=== PATIENT | female | born 1965 | race Caucasian/White ===

== ENCOUNTER 2020-03-26 22:03 | Inpatient (IN) ==
[2020-03-26] MEDS ORDERED: SODIUM CHLORIDE 0.9% 1000ML 1,000 ML IV ONE ×2 (23:01→23:42)
[2020-03-26] MEDS ORDERED: ONDANSETRON INJ 2 MG/ML 2 ML VIAL IV STA (23:01)
[2020-03-26] MEDS ORDERED: MoRPHine SULFATE 2 MG/ML CARP IV STA (23:01)
--- NOTE | 2020-03-26 23:10 | Emergency Department Note ---
History of Present Illness General Chief complaint: Dehydration Stated complaint: VOMITING, DEHYDRATION Time Seen by Provider: 03/26/20 22:35 Source: patient Mode of arrival: ambulatory Limitations: no limitations History of Present Illness Provider complaint: nausea/vomiting, abdominal pain Onset (ago): day(s) 1 Location: abdomen Radiation: non-radiation Severity: moderate Maximum Pain Intensity: 4 Current Pain Intensity: 4 Quality: + constant Relieved By: + none Exacerbated By: + none Associated symptoms: + loss of appetite, + malaise and + nausea/vomiting Treatments prior to arrival: none This is a 55-year-old female who presents complaining of nausea vomiting and abdominal pain. Patient states pain started yesterday afternoon around 1 PM, and his pain worsened and she began to have nausea vomiting. Last evening patient was seen and evaluated in the [facility] emergency room where she underw ent labs, urine, and CT imaging and was told she had a 3 mm right-sided kidney stone. Patient was discharged with ondansetron, Flomax, and ciprofloxacin. Patient states at that time she was told she had an infection in her urine as well. Patient followed up with her family doctor who told her that the preliminary urine culture showed no growth and that she likely did not have a urinary tract infection. Patient states today she has had persistent nausea and vomiting as well as ongoing pain and has been unable to keep any of the medications down. Patient states she is also had minimal urine output today. Patient states she has noticed slight blood with urination when she wipes. Patient denies fevers or chills. Patient denies any prior history of kidney stones, states her brother does get them. Pt seen during a time of high acuity and national emergency pandemic while wearing PPE. Home Medications Home Medications Medication Instructions Recorded Confirmed Type acetaminophen-codeine 1 tab PO Q4H PRN 03/26/20 03/26/20 History black cohosh 200 mg PO DAILY 03/26/20 03/26/20 History calcium carbonate-vitamin D3 1 cap PO DAILY 03/26/20 03/26/20 History [Calcium 600 + D(3)] cholecalciferol (vitamin D3) 25 mcg PO DAILY 03/26/20 03/26/20 History [Vitamin D3] ciprofloxacin HCl 500 mg PO Q12H 03/26/20 03/26/20 History levothyroxine 25 mcg PO DAILYBB 03/26/20 03/26/20 History multivitamin 2 tab PO DAILY 03/26/20 03/26/20 History omeprazole 40 mg PO DAILYBB 03/26/20 03/26/20 History ondansetron 4 mg TRANSLINGUAL Q6H PRN 03/26/20 03/26/20 History pravastatin 20 mg PO DAILY 03/26/20 03/26/20 History tamsulosin 0.4 mg PO DAILY 03/26/20 03/26/20 History Allergies Allergy/AdvReac Type Severity Reaction Status Date / Time morphine Allergy Severe HAD TO BE Verified 03/26/20 23:42 RESUSCITATED, VEINS WENT "WHITE". Penicillins Allergy Intermediate RASH-HIVES Verified 03/26/20 23:42 Past Med/Surg History Surgical History (Updated 03/27/20 @ 03:41 by Aide Abad RN) H/O knee surgery H/O: hysterectomy Social History Smoking Status: Never smoker Second Hand Exposure: No; Do You Dip or Chew Tobacco: No; Tobacco Cessation Education Requested by Patient: No Hx Alcohol Use: No Hx Substance Use: No Preferred Language: Mosotho Communication Ability: Effective Spindle Maker Required: No Beliefs That Will Affect Care: None Current Living Situation: Spouse Other Information That Helps Us Care for You: No Feels Safe at Home: Yes Safety Concerns: Feels Safe At This Time Review of Systems See HPI for pertinent positives & negatives. and A total of 10 systems reviewed and were otherwise negative Physical Exam Vital Signs Vital Signs - 24 hr 03/27/20 02:00 Pulse Rate [Apical] 67 Respiratory Rate 18 Respiratory Effort / Characteristics Non-Labored Spontaneous Respiratory Depth Normal Respiratory Pattern Regular Blood Pressure [Right Arm] 118/79 Blood Pressure Mean [Right Arm] 92 Blood Pressure Position [Right Arm] Lying Pulse Oximetry 93 Oxygen Delivery Method Room Air GENERAL: alert, ill appearing, well nourished, moderate distress, non-toxic, dry heaving into an emesis bag EYE EXAM: normal conjunctiva, PERRL and EOM's grossly intact OROPHARYNX: no exudate, no erythema, lips, buccal mucosa, and tongue normal and mucous membranes are dry NECK: supple, no nuchal rigidity, no adenopathy, non-tender LUNGS: Clear to auscultation. Normal chest wall mechanics, no w/r/r HEART: no murmurs, S1 normal and S2 normal ABDOMEN: abdomen soft, tenderness to palpation in the right lower quadrant and right mid abdomen, normo-active bowel sounds, no masses, no rebound or guarding. BACK: Back is symmetrical on inspection and there is no deformity, no midline tenderness, no CVA tenderness. SKIN: no rashes and no bruising UPPER EXTREMITIES: upper extremities are grossly normal. FROM, nml pulses b/l. LOWER EXTREMITIES: No pitting edema. FROM, nml pulses b/l. NEURO EXAM: Normal sensorium, cranial nerves II-XII grossly intact, normal speech, no gross weakness of arms, no gross weakness of legs. Gross sensation intact. Course Course 2326: Patient still having pain, uncomfortable appearing. 0052: Patient states pain improved, would like to try taking ice chips. Patient and family were able to show me records from her evaluation there and I was able to review the CT results, as well as the urine culture which showed no growth. Patient's renal function at that time was normal, no leukocytosis. While talking and patient's trial of ice chips, she began to get nauseated and began dry heaving again. Will order additional Zofran. 0130: Pt still nauseated, pain still present but tolerable. 0140: Discussed with Dr. Welch. Administered Medications Acetaminophen (Acetaminophen 325 Mg Tab) 650 mg PO Q4H PRN PRN Reason: Pain or Fever Stop: 04/26/20 03:32 Last Admin: 03/27/20 14:16 Dose: 650 mg Documented by: [id number] Admin: 03/27/20 06:33 Dose: 650 mg Documented by: [id number] Hydromorphone HCl (Hydromorphone Inj 1 Mg/Ml Syringe) 1 mg IV Q3H PRN PRN Reason: SEVERE Pain (Scale 7,8,9,10) Stop: 04/10/20 03:32 Last Admin: 03/27/20 23:26 Dose: 1 mg Documented by: [id number] Sodium Chloride (Nss 1000ml) 1,000 mls @ 200 mls/hr IV .Q5H YUMIKO Stop: 04/26/20 13:29 Last Admin: 03/27/20 20:06 Dose: 200 mls/hr Documented by: [id number] Infusion: 03/27/20 19:12 Dose: 200 mls/hr Documented by: [id number] Admin: 03/27/20 14:12 Dose: 200 mls/hr Documented by: [id number] Levothyroxine Sodium (Levothyroxine Sodium 25 Mcg Tablet) 25 mcg PO DAILYBB YUMIKO Stop: 04/26/20 06:29 Last Admin: 03/27/20 06:31 Dose: 25 mcg Documented by: [id number] Pravastatin Sodium (Pravastatin Sod 20 Mg Tab) 20 mg PO DAILY YUMIKO Stop: 04/26/20 08:59 Last Admin: 03/27/20 09:25 Dose: 20 mg Documented by: [id number] Tamsulosin HCl (Tamsulosin Hcl 0.4 Mg Cap) 0.4 mg PO DAILY YUMIKO Stop: 04/26/20 08:59 Last Admin: 03/27/20 09:25 Dose: 0.4 mg Documented by: [id number] Discontinued Medications Famotidine (Famotidine 20mg/5ml Iv Push) 20 mg IV ONE STA Stop: 03/27/20 03:05 Last Admin: 03/27/20 03:14 Dose: 20 mg Documented by: [id number] Hydromorphone HCl (Hydromorphone Inj 0.5 Mg/0.5 Ml Syr) 0.5 mg IV NOW STA Stop: 03/26/20 23:26 Last Admin: 03/27/20 00:10 Dose: 0.5 mg Documented by: [id number] Hydromorphone HCl (Hydromorphone Inj 1 Mg/Ml Syringe) 1 mg IV NOW STA Stop: 03/27/20 00:59 Last Admin: 03/27/20 01:19 Dose: Not Given Documented by: [id number] Sodium Chloride (Nss 1000ml) 1,000 mls @ 999 mls/hr IV .Q1H1M ONE Stop: 03/27/20 00:01 Last Infusion: 03/27/20 01:18 Dose: 0 mls/hr Documented by: [id number] Admin: 03/26/20 23:24 Dose: 999 mls/hr Documented by: [id number] Sodium Chloride (Nss 1000ml) 1,000 mls @ 999 mls/hr IV .Q1H1M ONE Stop: 03/27/20 00:42 Last Infusion: 03/27/20 01:18 Dose: 0 mls/hr Documented by: [id number] Admin: 03/27/20 00:11 Dose: 999 mls/hr Documented by: [id number] Magnesium Sulfate/Dextrose (Magnesium Sulfate / D5w) 1 gm in 100 mls @ 100 mls/hr IV NOW STA Stop: 03/27/20 01:02 Last Infusion: 03/27/20 01:18 Dose: 0 mls/hr Documented by: [id number] Admin: 03/27/20 00:10 Dose: 100 mls/hr Documented by: [id number] Acetaminophen (Ofirmev) 1,000 mg in 100 mls @ 400 mls/hr IV NOW STA Stop: 03/27/20 00:44 Last Infusion: 03/27/20 01:18 Dose: 0 mls/hr Documented by: [id number] Admin: 03/27/20 00:50 Dose: 400 mls/hr Documented by: [id number] Sodium Chloride (Nss 1000ml) 1,000 mls @ 125 mls/hr IV .Q8H YUMIKO Stop: 04/26/20 01:14 Last Infusion: 03/27/20 04:04 Dose: 0 mls/hr Documented by: [id number] Admin: 03/27/20 01:18 Dose: 125 mls/hr Documented by: [id number] Prochlorperazine (Compazine) 1 mls @ 1 mls/min IV ONE ONE Stop: 03/27/20 01:32 Last Admin: 03/27/20 01:58 Dose: 1 mls/min Documented by: [id number] Sodium Chloride (Nss 1000ml) 1,000 mls @ 125 mls/hr IV .Q8H YUMIKO Stop: 03/27/20 11:32 Last Infusion: 03/27/20 12:03 Dose: 125 mls/hr Documented by: [id number] Admin: 03/27/20 03:54 Dose: 125 mls/hr Documented by: [id number] Ketorolac Tromethamine (Ketorolac Tromethamine 15 Mg/Ml Vial) 10 mg IV NOW ONE Stop: 03/27/20 00:31 Last Admin: 03/27/20 00:39 Dose: 10 mg Documented by: [id number] Ketorolac Tromethamine (Ketorolac Tromethamine 15 Mg/Ml Vial) 15 mg IV Q6H PRN PRN Reason: MODERATE Pain (Scale 4,5,6) Last Admin: 03/27/20 12:12 Dose: 15 mg Documented by: [id number] Morphine Sulfate (Morphine Sulfate 2 Mg/Ml Carp) 2 mg IV NOW STA Stop: 03/26/20 23:02 Last Admin: 03/27/20 00:14 Dose: Not Given Documented by: [id number] Ondansetron HCl (Ondansetron Inj 2 Mg/Ml 2 Ml Vial) 4 mg IV NOW STA Stop: 03/26/20 23:02 Last Admin: 03/26/20 23:24 Dose: 4 mg Documented by: [id number] Ondansetron HCl (Ondansetron Inj 2 Mg/Ml 2 Ml Vial) 4 mg IV NOW STA Stop: 03/27/20 01:10 Last Admin: 03/27/20 01:17 Dose: 4 mg Documented by: [id number] Medical Decision Making Differential Diagnosis Differential: Gastroenteritis, Food Borne, Esophageal Perforation, , Electrolyte Abnormality, Dehydration, Intraabdominal Infection, UTI/Pyelonephritis, Bowel Obstruction, Biliary Pathology, medication reaction, infection, amongst other pathology entertained. Medical Records Attestation: I reviewed the patient's medical records. Home Medications Current Medication List: was personally reviewed by me Laboratory Data Attestation: I reviewed the patient's lab results. Result diagrams: 03/27/20 05:39 03/27/20 05:39 Lab Results 03/26/20 03/26/20 Range/Units 23:19 23:19 WBC 9.88 (4.8-10.8) K/uL RBC 4.42 (4.2-5.4) M/uL Hgb 12.4 (12.0-16.0) g/dL Hct 37.5 (37-47) % MCV 84.8 (80-100) fL MCH 28.1 (25-34) pg MCHC 33.1 (32-36) g/dL RDW Std Deviation 41.8 (36.4-46.3) fL RDW Coeff of Pippa 13.4 (11.5-14.5) % Plt Count 275 (130-400) K/uL MPV 8.7 (7.4-10.4) fL Immature Gran % (Auto) 0.2 % Neut % (Auto) 82.2 % Lymph % (Auto) 9.2 % [place] % (Auto) 8.2 % Eos % (Auto) 0.1 % Baso % (Auto) 0.1 % Neut # (Auto) 8.12 H (1.4-6.5) K/uL Lymph # (Auto) 0.91 L (1.2-3.4) K/uL [place] # (Auto) 0.81 H (0.11-0.59) K/uL Eos # (Auto) 0.01 (0-0.5) K/uL Baso # (Auto) 0.01 (0-0.2) K/uL Immature Gran # (Auto) 0.02 (0.00-0.02) K/uL Sodium 139 (136-145) mmol/L Potassium 3.9 (3.5-5.1) mmol/L Chloride 105 (98-107) mmol/L Carbon Dioxide 28 (21-32) mmol/L Anion Gap 6.0 (3-11) BUN 18 (7-18) mg/dl Creatinine 1.32 H (0.6-1.2) mg/dl Est Cr Clr Drug Dosing 40.8 ml/min Est GFR ( Amer) 53.2 Est GFR (Non-Af Amer) 45.9 BUN/Creatinine Ratio 13.3 (10-20) Glucose 103 H (70-99) mg/dl Calcium 8.9 (8.5-10.1) mg/dl Magnesium 1.7 L (1.8-2.4) mg/dl Total Bilirubin 0.7 (0.2-1) mg/dl AST 20 (15-37) U/L ALT 34 (12-78) U/L Alkaline Phosphatase 95 (45-117) U/L Total Protein 7.4 (6.4-8.2) gm/dl Albumin 3.7 (3.4-5.0) gm/dl Globulin 3.7 (2.5-4.0) gm/dl Albumin/Globulin Ratio 1.0 (0.9-2) Lipase 70 L (73-393) U/L Imaging Data My Impression: KUB: X-ray reviewed and interpreted by me, no obvious SBO, no air-fluid levels, questionable phlebolith versus stone noted in the right low pelvis. Blood Pressure Blood Pressure Findings: Normal blood pressure MDM Narrative Presenting here due to persistent pain, nausea and vomiting. Patient recently diagnosed with a 3 mm distal ureteral stone at [facility]. Patient was given medications, however was unable to tolerate them at home. Family bedside was able to show me results of the CT and her prior labs which I did review. Patient had no evidence of leukocytosis or renal dysfunction, no other acute findings on the CT. Patient was given additional medications for nausea and pain, however required subsequent repeat doses. Patient was carefully rehydrated due to poor p.o. intake today because of symptoms of her renal colic. Patient was afebrile and hemodynamically stable. Patient did not have a significant leukocytosis, however did have a slight elevation of her creatinine compared to her prior at the time of diagnosis. Patient also had a urine culture which was negative from her prior evaluation. I do not suspect infected stone. Given persistence of symptoms despite multiple medications, discussed with patient additional inpatient evaluation and management she was in agreement. Case discussed with Dr. Welch. An order was placed for continuous cardiac monitoring. The monitor shows a rate of _80 with _normal sinus__ rhythm. Impression & Plan Abdominal pain, Renal colic, Nausea & vomiting Discharge Plan Visit Data Chief Complaint: Dehydration Stated Complaint: VOMITING, DEHYDRATION ED Provider: Suzan Yañez Discharge Problem: Abdominal pain, Renal colic, Nausea & vomiting Patient Disposition: Admitted As Inpatient Discharge Instructions Interventions: ED Discharge Assessment Last Done: 03/27/20 03:10 Discharge Problem: Abdominal pain Qualifiers: Abdominal location: right lower quadrant Qualified Code(s): R10.31 - Right lower quadrant pain Nausea & vomiting Qualifiers: Vomiting type: unspecified
[2020-03-26] MEDS ORDERED: HYDROmorphone INJ 0.5 MG/0.5 ML SYR IV STA (23:25)
[2020-03-26 23:34] LABS: Basophils # (auto) 0.01 K/uL (0-0.2); Basophils % (auto) 0.1 %; Eosinophils # (auto) 0.01 K/uL (0-0.5); Eosinophils % (auto) 0.1 %; Hematocrit (blood only) 37.5 % (37-47); Hemoglobin 12.4 g/dL (12.0-16.0); Immature Granulocytes # (auto) 0.02 K/uL (0.00-0.02); Immature Granulocytes % (auto) 0.2 %; Lymphocytes # (auto) 0.91 K/uL (1.2-3.4); Lymphocytes % (auto) 9.2 %; Mean Corpuscular Hemoglobin 28.1 pg (25-34); Mean Corpuscular Hgb Conc 33.1 g/dL (32-36); Mean Corpuscular Volume 84.8 fL (80-100); Mean Platelet Volume 8.7 fL (7.4-10.4); Monocytes # (auto) 0.81 K/uL (0.11-0.59); Monocytes % (auto) 8.2 %; Neutrophils # (auto) 8.12 K/uL (1.4-6.5); Neutrophils % (auto) 82.2 %; Platelet Count 275 K/uL (130-400); RDW Coefficient of Variation 13.4 % (11.5-14.5); RDW Standard Deviation 41.8 fL (36.4-46.3); Red Blood Count 4.42 M/uL (4.2-5.4); White Blood Count 9.88 K/uL (4.8-10.8)
[2020-03-26 23:51] LABS: Albumin Level 3.7 gm/dl (3.4-5.0); BUN Creatinine Ratio 13.3 (10-20); Calcium 8.9 mg/dl (8.5-10.1); Creatinine Clr Calc Pharmacy 40.8 ml/min; Est GFR (African American) 53.2; Est GFR (Non-African American) 45.9; Magnesium 1.7 mg/dl (1.8-2.4); Potassium 3.9 mmol/L (3.5-5.1)
[2020-03-26 23:53] LABS: Bilirubin,Total 0.7 mg/dl (0.2-1); Globulin 3.7 gm/dl (2.5-4.0); Total Protein 7.4 gm/dl (6.4-8.2)
[2020-03-27] MEDS ORDERED: MAGNESIUM SULFATE / D5W 1 GM/100 ML BAG IV STA (00:03)
[2020-03-27] MEDS ORDERED: KETOROLAC TROMETHAMINE 15 MG/ML VIAL IV ONE (00:30)
[2020-03-27] MEDS ORDERED: ACETAMINOPHEN 1,000 MG/100 ML VIAL IV STA (00:30)
[2020-03-27] MEDS ORDERED: HYDROmorphone INJ 1 MG/ML SYRINGE IV STA (00:58)
[2020-03-27] MEDS ORDERED: ONDANSETRON INJ 2 MG/ML 2 ML VIAL IV STA (01:09)
[2020-03-27] MEDS ORDERED: SODIUM CHLORIDE 0.9% 1000ML 1,000 ML IV SCH ×2 (01:15→03:33)
[2020-03-27] MEDS ORDERED: PROCHLORPERAZINE 1 ML IV ONE (01:31)
--- NOTE | 2020-03-27 02:51 | History & Physical Report ---
Date of Service March 27, 2020 Assessment & Plan (1) Nausea & vomiting: Tete Ugalde is a 55 y/o female who presented to [facility] ED today for CC of Vomiting. She notes she had sudden onset of right lower back pain yesterday around 1pm that radiated into right groin. - Recently diagnosed with right sided kidney stone at [place] [facility] yesterday. - She has been unable to continue outpatient management as started to have intractable vomiting. - Will defer antibiotic management, considered giving IV abx here. She has an unclear history if her prior UA was positive. She notes she took Cipro this morning but had episode of vomiting right after taking pill. She states that her PCP reviewed UA results from ED visit and told patient that patient didn't appear to have a UTI. Patient states that her PCP made no recommendations to continue to discontinue antibiotics. She denies any fever or chills. There is no current UA. Will continue order for UA with culture. - She notes no prior hx of kidney stones prior to this episode. Education on staying well hydrated to prevent future stone formation. - She notes current nausea/vomiting is controlled and pain is controlled from ED treatment. - In the ED she received, prochlorperazine, dilaudid 1mg IV, NSS 2L Bolus total, Zofran 4mg IV x 2 doses, Tylenol 1gm IV, Toradol 10mg IV, morphine 2mg IV, Mag 1gm IV, Dilaudid 0.5mg IV. - Discussed that treatment will be supportive care until able to tolerate PO intake. Analgesic orders placed by severity. Zofran 4mg IV q6h is ordered PRN, anticipate she will require alternate medication or more frequent dosing. - Will continue with NSS @ 125ml/hr. Clear liquid diet ordered and advance as tolerated, aspiration precautions ordered. - No elevated WBC here, Tmax 37.6. FENGI: Clear liquid as tolerated, advance as tolerated, Pepcid 20mg IV x 1, NSS @125ml/hr Dispo: Obs, med/surg DVT ppx: SCDs Code: Full code (2) Renal colic: pain management orders placed by severity attempt to keep patient as comfortable as possible IVF provided to allow adequate perfusion - c/w Flomax 0.4mg PO (3) Hypothyroid: c/w home synthroid 25mcg daily (4) HLD (hyperlipidemia): c/w home pravastatin 20mg (5) GERD (gastroesophageal reflux disease): home PPI since NF, will give Pepcid 20mg IV x 1 now History of Present Illness Chief Complaint: Vomiting Primary Care Provider: Jessie Montgomery Tete Ugalde is a 55 y/o female who presented to [facility] ED today for CC of Vomiting. She notes she had sudden onset of right lower back pain yesterday around 1pm that radiated into right groin. She notes pain was severe and she went to [place] ED. She notes she was diagnosed with a kidney stone in the ED. She was given Rx for Flomax, Zofran ODT, and Ciprofloxacin 500mg. She no enmanuel she was given an IV abx in [place] ED as well but cannot recall the name. She notes she started to have nausea and vomiting after she returned home from the ED. She notes that episodes were too numerous to count. She notes that vomiting was worsened with any PO intake. She notes she did not try Zofran ODT which she had at home. She noted decreased urine output today as well. She was concerned about dehydration and came here to [facility] ED. She notes she took Cipro this morning but had episode of vomiting right after taking pill. She states that her PCP reviewed UA results from ED visit and told patient that patient didn't appear to have a UTI. Patient states that her PCP made no recommendations to continue to discontinue antibioics. She denies any fever or chills. She notes no prior hx of kidney stones prior to this episode. She notes current nausea/vomiting is controlled and pain is controlled from ED treatment. In the ED she received, prochlorperazine, dilaudid 1mg IV, NSS 2L Bolus total, Zofran 4mg IV x 2 doses, Tylenol 1gm IV, Toradol 10mg IV, morphine 2mg IV, Mag 1gm IV, Dilaudid 0.5mg IV. Allergies Allergy/AdvReac Type Severity Reaction Status Date / Time morphine Allergy Severe HAD TO BE Verified 03/26/20 23:42 RESUSCITATED, VEINS WENT "WHITE". Penicillins Allergy Intermediate RASH-HIVES Verified 03/26/20 23:42 Home Medications Home Medications Medication Instructions Recorded Confirmed Type acetaminophen-codeine 1 tab PO Q4H PRN 03/26/20 03/26/20 History black cohosh 200 mg PO DAILY 03/26/20 03/26/20 History calcium carbonate-vitamin D3 1 cap PO DAILY 03/26/20 03/26/20 History [Calcium 600 + D(3)] cholecalciferol (vitamin D3) 25 mcg PO DAILY 03/26/20 03/26/20 History [Vitamin D3] ciprofloxacin HCl 500 mg PO Q12H 03/26/20 03/26/20 History levothyroxine 25 mcg PO DAILYBB 03/26/20 03/26/20 History multivitamin 2 tab PO DAILY 03/26/20 03/26/20 History omeprazole 40 mg PO DAILYBB 03/26/20 03/26/20 History ondansetron 4 mg TRANSLINGUAL Q6H PRN 03/26/20 03/26/20 History pravastatin 20 mg PO DAILY 03/26/20 03/26/20 History tamsulosin 0.4 mg PO DAILY 03/26/20 03/26/20 History Past Med/Surg History Surgical History (Updated 03/27/20 @ 03:41 by Aide Abad RN) H/O knee surgery H/O: hysterectomy Social History Smoking Status: Never smoker Second Hand Exposure: No; Do You Dip or Chew Tobacco: No; Tobacco Cessation Education Requested by Patient: No Hx Alcohol Use: No Hx Substance Use: No Preferred Language: Icelandic Land Surveyor Required: No Beliefs That Will Affect Care: None Current Living Situation: Spouse Other Information That Helps Us Care for You: No Feels Safe at Home: Yes Safety Concerns: Feels Safe At This Time Review of Systems Review of Systems: All systems reviewed & are unremarkable except as noted in HPI & below Constitutional: no fever and no chills Eyes: no blind spots and no spots in vision Ear, Nose, Mouth, Throat: no nasal congestion, no nasal obstruction and no epistaxis Respiratory: no cough and no dyspnea Cardiovascular: no chest pain and no palpitations Gastrointestinal: as per Subjective / HPI Genitourinary: as per Subjective / HPI; no dysuria Musculoskeletal: as per Subjective / HPI; no neck pain and no joint pain Integumentary: no rash and no lesions Neurologic: no localized weakness, no numbness and no syncope Endocrine: no polydipsia, no polyphagia and no polyuria Physical Exam Constitutional: WD/WN, vitals as above cooperative and comfortable appears tired Eyes: PERRL, conjunctivae normal, anicteric sclerae ENMT: dry mucous membranes Neck: normal visual inspection and trachea midline Respiratory: normal respiratory effort, lungs clear to auscultation Cardiovascular: RRR, no murmur, no edema Gastrointestinal (Abdomen): Percussion/Palpation: abdomen soft; abdomen nontender, no guarding and abdomen not rigid Musculoskeletal: Head/Neck/Chest: normocephalic and head atraumatic Skin: no rashes, warm and dry Neurologic: moves all extremities and awake Psychiatric: A+Ox3, euthymic affect Results & Data Results & Data ([facility]) Vital Signs (Past 12 Hours) Vital Signs Temp Pulse Pulse Resp BP BP Pulse Ox 03/27/20 02:00 67 18 118/79 93 03/27/20 00:04 90 18 116/76 95 03/26/20 22:07 37.6 C H 103 H 18 129/63 95 Laboratory Results Laboratory Results - last 24 hr 03/26/20 03/26/20 23:19 23:19 WBC 9.88 RBC 4.42 Hgb 12.4 Hct 37.5 MCV 84.8 MCH 28.1 MCHC 33.1 RDW Std Deviation 41.8 RDW Coeff of Pippa 13.4 Plt Count 275 MPV 8.7 Immature Gran % (Auto) 0.2 Neut % (Auto) 82.2 Lymph % (Auto) 9.2 [place] % (Auto) 8.2 Eos % (Auto) 0.1 Baso % (Auto) 0.1 Neut # (Auto) 8.12 H Lymph # (Auto) 0.91 L [place] # (Auto) 0.81 H Eos # (Auto) 0.01 Baso # (Auto) 0.01 Immature Gran # (Auto) 0.02 Sodium 139 Potassium 3.9 Chloride 105 Carbon Dioxide 28 Anion Gap 6.0 BUN 18 Creatinine 1.32 H Est Cr Clr Drug Dosing 40.8 Est GFR ( Amer) 53.2 Est GFR (Non-Af Amer) 45.9 BUN/Creatinine Ratio 13.3 Glucose 103 H Calcium 8.9 Magnesium 1.7 L Total Bilirubin 0.7 AST 20 ALT 34 Alkaline Phosphatase 95 Total Protein 7.4 Albumin 3.7 Globulin 3.7 Albumin/Globulin Ratio 1.0 Lipase 70 L Medications Administered Sodium Chloride (Nss 1000ml) 1,000 mls @ 125 mls/hr IV .Q8H YUMIKO Stop: 04/26/20 01:14 Last Admin: 03/27/20 01:18 Dose: 125 mls/hr Documented by: [id number] Code Status & VTE Plan Code Status Full Code VTE Prophylaxis Plan VTE Prophylaxis will be ordered: Yes Supervising Physician Co-Signing Physician Notes Patient seen and examined, chart reviewed, case discussed with Dr. Potter and I agree with his assessment and plan as documented above. Briefly, patient is a 55-year-old female presenting with persistent nausea and vomiting, right flank pain. Patient recently diagnosed with kidney stone. On physical exam she is afebrile, hemodynamically stable, in mild distress secondary to nausea and pain Skinwarm, dry, intact, no rashes or lesions HEENTnormocephalic/atraumatic, pupils equal round and reactive to light, neck supple, moist mucous membranes Heart+ S1, S2, regular, no murmur/rub/gallops Lungsequal breath sounds bilaterally, no rales/rhonchi/wheezes Abdomensoft, nontender/nondistended. Normoactive bowel sounds. + Right flank pain with CVA tenderness Extremitieswarm, well-perfused, 2+ pulses and no edema Neurogrossly nonfocal Labs and images reviewed. Significant for elevated creatinine of 1.32 Assessment/plan Observation to medical floor GERD pain control, antiemetics as needed Fluid Flomax Remainder of plan as above Resident Activity Tracking Resident Involvement: Resident Care Provided Care Provided: Adult Hospital Medicine (1) Nausea & vomiting Vomiting type: unspecified
[2020-03-27] MEDS ORDERED: FAMOTIDINE 20MG/5ML IV PUSH IV STA (03:04)
[2020-03-27] MEDS ORDERED: KETOROLAC TROMETHAMINE 15 MG/ML VIAL IV PRN (03:33)
[2020-03-27] MEDS ORDERED: MoRPHine SULFATE 2 MG/ML CARP IV PRN (03:33)
--- NOTE | 2020-03-27 04:05 | Billing Data ---
Date of Service March 27, 2020 Coding Level of Care Code 32831 OBS Care - Level 3
[2020-03-27 04:11] LABS: Appearance Urine Clear (Clear); Bacteria Urine Automated Negative (Negative); Bilirubin Urine Negative (Negative); Blood Urine Trace (Negative); Color Urine Yellow; Epithelial Cell Urine Auto 0-5 /lpf (0-5); Glucose Urine UA Negative (Negative); Ketones Urine 1+ (Negative); Leukocyte Esterase Urine Negative (Negative); Nitrite Urine Negative (Negative); Protein Urine Negative (Negative); RBC Urine Automated 0-4 /hpf (0-4); Specific Gravity Urine 1.019 (1.000-1.030); Urobilinogen Urine Negative (Negative); WBC Urine Automated 0 /hpf (0-5)
[2020-03-27 05:49] LABS: Eosinophils # (auto) 0.02 K/uL (0-0.5); Eosinophils % (auto) 0.2 %; Hematocrit (blood only) 31.5 % (37-47); Hemoglobin 10.5 g/dL (12.0-16.0); Immature Granulocytes # (auto) 0.02 K/uL (0.00-0.02); Immature Granulocytes % (auto) 0.2 %; Lymphocytes # (auto) 1.29 K/uL (1.2-3.4); Lymphocytes % (auto) 13.6 %; Mean Corpuscular Hemoglobin 28.7 pg (25-34); Mean Corpuscular Hgb Conc 33.3 g/dL (32-36); Mean Corpuscular Volume 86.1 fL (80-100); Mean Platelet Volume 8.1 fL (7.4-10.4); Monocytes # (auto) 0.85 K/uL (0.11-0.59); Neutrophils # (auto) 7.28 K/uL (1.4-6.5); Platelet Count 203 K/uL (130-400); RDW Coefficient of Variation 13.6 % (11.5-14.5); RDW Standard Deviation 43.1 fL (36.4-46.3); Red Blood Count 3.66 M/uL (4.2-5.4); White Blood Count 9.46 K/uL (4.8-10.8)
[2020-03-27 06:10] LABS: BUN Creatinine Ratio 12.4 (10-20); Calcium 8.3 mg/dl (8.5-10.1); Creatinine Clr Calc Pharmacy 45.2 ml/min; Est GFR (African American) 60.4; Est GFR (Non-African American) 52.1; Magnesium 2.1 mg/dl (1.8-2.4)
[2020-03-27] MEDS: LEVOTHYROXINE SODIUM 25 MCG TABLET PO SCH (06:31)
[2020-03-27] MEDS: ACETAMINOPHEN 325 MG TAB PO PRN ×2 (06:33→14:16)
--- NOTE | 2020-03-27 08:14 | XRay Report ---
KUB CLINICAL HISTORY: Right-sided stone. COMPARISON STUDY: None. FINDINGS: A 2 mm right pelvic calcification is noted. No renal calculi are identified. Bowel gas carlos jason is normal. IMPRESSION: 2 mm right pelvic calcification which could reflect a phlebolith or distal right uretera l calculus. ACT 112: Negative or not required by law. Electronically signed by: Otto Groves M.D. 03/27/2020 8:12 AM
--- NOTE | 2020-03-27 09:19 | Hospitalist Progress Note ---
Date of Service March 27, 2020 Assessment & Plan (1) Nausea & vomiting: Tete Ugalde is a 55 y/o female who presented to [facility] ED today for CC of Vomiting. She notes she had sudden onset of right lower back pain yesterday around 1pm that radiated into right groin. - Recently diagnosed with right sided kidney stone at [facility] yesterday. - She has been unable to continue outpatient management as started to have intractable vomiting. - She notes no prior hx of kidney stones prior to this episode. Her brothers had kidney stones and her mother had gallstones - was not started on antibiotics. Analgesic orders placed by severity. Zofran 4mg IV q6h is ordered PRN, anticipate she will require alternate medication or more frequent dosing. -Escalate IV fluids 200 and hour strain all urine and check a renal ultrasound Renal function is stable on serology (2) Renal colic: pain management orders placed by severity attempt to keep patient as comfortable as possible IVF provided to allow adequate perfusion - c/w Flomax 0.4mg PO If not improved and continues with obstruction of urology consult will keep n.p.o. after midnight on 03 27-03 28 (3) Hypothyroid: home synthroid 25mcg daily (4) HLD (hyperlipidemia): pravastatin 20mg (5) GERD (gastroesophageal reflux disease): Typically takes home PPI Admission and Anticipated Discharge Date Admission Date: March 27, 2020 Subjective Patient still with right flank pain probably 5 out of 10. She has had no hematuria she has not had frequent urination however an IV fluid will be increased Review of Systems Review of Systems: Mild distress and fatigue no headache, blurry or double vision no speech or swallowing issues no chest pain, pressure or palpitations no shortness of breath, cough or wheezes Right-sided abdominal pain mild nausea no dysuria, hematuria or frequency no focal joint pain or swelling Stated back pain with CVA tenderness no radicular pain no bruising, bleeding or rashes no focal signs of weakness or numbness or altered sensation no complaints or anxiety or depression. Physical Exam Physical Exam: The patient appeared well nourished and normally developed. She is in mild to moderate distress Vital signs as documented. Head exam is normocephalic atraumatic no scleral icterus Neck is without JVD, thyromegaly, or carotid bruits. Lungs are clear to auscultation, no focal loss of breath sounds Cardiac exam, Rhythm is regular.. No murmurs, rubs or gallops. Abdominal exam reveals normal bowel sounds, soft nonright-sided tenderness CVA angle tenderness some tenderness to percussion Extremities are nonedematous and both pedal pulses are normal. Neurologic exam is alert and oriented, no focal loss of strength or sensation Skin is without bruises or rashes Psychologically is without concerns for anxiety or depression. Results & Data Results & Data ([facility]) Vital Signs (Past 12 Hours) Vital Signs Temp Pulse Pulse Pulse Resp BP BP 03/27/20 07:44 97.7 F 73 18 110/68 03/27/20 03:33 97.7 F 77 16 118/69 03/27/20 03:10 63 18 121/68 03/27/20 02:00 67 18 118/79 03/27/20 00:04 90 18 116/76 03/26/20 22:07 99.7 F H 103 H 18 129/63 Pulse Ox 03/27/20 07:44 97 03/27/20 03:33 93 03/27/20 03:10 93 03/27/20 02:00 93 03/27/20 00:04 95 03/26/20 22:07 95 PG Care Time/CCT Total # of Minutes Spent Total Time Spent with Patient: Total time spent is greater than 50% in coordination of care (as documented) at patient's floor/unit and/or counseling patient: Coding Level of Care Code 24325 Subseq Obs Care Lvl 2 Diagnoses Nausea & vomiting R11.2 Vomiting type: unspecified Renal colic N23 Hypothyroid E03.9 HLD (hyperlipidemia) E78.5 GERD (gastroesophageal reflux disease) K21.9 (1) Nausea & vomiting Vomiting type: unspecified
[2020-03-27] MEDS: TAMSULOSIN HCL 0.4 MG CAP PO SCH (09:25)
[2020-03-27] MEDS: PRAVASTATIN SOD 20 MG TAB PO SCH (09:25)
[2020-03-27] MEDS: SODIUM CHLORIDE 0.9% 1000ML 1,000 ML IV SCH ×2 (14:12→20:06)
--- NOTE | 2020-03-27 16:25 | Ultrasound Report ---
EXAMINATION: RENAL ULTRASOUND CLINICAL HISTORY: Right-sided flank pain COMPARISON STUDY: FINDINGS: The right kidney measures 10.5 cm. The left kidney measures 11.8 cm. There is mild fullnes s the right renal collecting system. There is a small amount of right-sided perinephric fluid. There is no left-sided hydronephrosis. There are no renal masses. No bladder lesions are visualized. Neither ureteral jet was delineated. IMPRESSION : 1. Small amount of right-sided perinephric fluid 2. Minimal fullness of the right renal collecting system ACT 112: Negative or not required by law. Electronically signed by: Roni Fox M.D. 03/27/2020 4:24 PM
[2020-03-27] MEDS: HYDROmorphone INJ 1 MG/ML SYRINGE IV PRN (23:26)
[2020-03-28] MEDS: SODIUM CHLORIDE 0.9% 1000ML 1,000 ML IV SCH ×3 (01:10→11:34)
[2020-03-28 05:58] LABS: Basophils # (auto) 0.01 K/uL (0-0.2); Basophils % (auto) 0.1 %; Hematocrit (blood only) 31.9 % (37-47); Hemoglobin 10.5 g/dL (12.0-16.0); Immature Granulocytes # (auto) 0.04 K/uL (0.00-0.02); Immature Granulocytes % (auto) 0.3 %; Lymphocytes # (auto) 0.75 K/uL (1.2-3.4); Lymphocytes % (auto) 6.3 %; Mean Corpuscular Hemoglobin 28.5 pg (25-34); Mean Corpuscular Hgb Conc 32.9 g/dL (32-36); Mean Corpuscular Volume 86.7 fL (80-100); Mean Platelet Volume 8.8 fL (7.4-10.4); Monocytes # (auto) 0.86 K/uL (0.11-0.59); Monocytes % (auto) 7.3 %; Neutrophils # (auto) 10.18 K/uL (1.4-6.5); Platelet Count 223 K/uL (130-400); RDW Coefficient of Variation 13.7 % (11.5-14.5); RDW Standard Deviation 43.7 fL (36.4-46.3); Red Blood Count 3.68 M/uL (4.2-5.4); White Blood Count 11.84 K/uL (4.8-10.8)
[2020-03-28] MEDS: HYDROmorphone INJ 1 MG/ML SYRINGE IV PRN (06:12)
[2020-03-28] MEDS: ONDANSETRON INJ 2 MG/ML 2 ML VIAL IV PRN ×2 (06:16→17:14)
[2020-03-28 06:20] LABS: BUN Creatinine Ratio 9.4 (10-20); Calcium 8.2 mg/dl (8.5-10.1); Creatinine Clr Calc Pharmacy 44.1 ml/min; Est GFR (African American) 58.6; Est GFR (Non-African American) 50.5
[2020-03-28] MEDS: LEVOTHYROXINE SODIUM 25 MCG TABLET PO SCH (06:43)
[2020-03-28] MEDS: PRAVASTATIN SOD 20 MG TAB PO SCH (07:54)
[2020-03-28] MEDS: TAMSULOSIN HCL 0.4 MG CAP PO SCH (07:55)
--- NOTE | 2020-03-28 10:03 | XRay Report ---
KUB CLINICAL HISTORY: eval for residual renal stone on right COMPARISON STUDY: KUB March 26, 2020. Renal ultrasound March 27, 2022 FINDINGS: A 2 mm right pelvic calcification is unchanged. No renal calculi are identified. Basilar op acity is noted. There is a small right pleural effusion. IMPRESSION: 1. No change position of a 2 mm right pelvic calcification. This could reflect a distal right uretera l calculus or phlebolith. 2. Right basilar airspace opacity with a small right pleural effusion. ACT 112: Negative or not required by law. Electronically signed by: Otto Groves M.D. 03/28/2020 10:02 AM
--- NOTE | 2020-03-28 12:45 | Hospitalist Progress Note ---
Date of Service March 28, 2020 Assessment & Plan (1) Nausea & vomiting: Tete Ugalde is a 55 y/o female who presented to [facility] ED today for CC of Vomiting. She notes she had sudden onset of right lower back pain yesterday around 1pm that radiated into right groin. - Recently diagnosed with right sided kidney stone at [place] ED 03/26 -persistent pain, u/s not confirming, kub shows possible small stone mary beth consult urology before ording ivp or other - She has been unable to continue outpatient management as started to have intractable vomiting. - She notes no prior hx of kidney stones prior to this episode. Her brothers had kidney stones and her mother had gallstones - was not started on antibiotics. r strain all urine and check a renal ultrasound Renal function is stable on serology (2) Renal colic: pain management orders placed by severity attempt to keep patient as comfortable as possible IVF provided to allow adequate perfusion - c/w Flomax 0.4mg PO (3) Hypothyroid: home synthroid 25mcg daily (4) HLD (hyperlipidemia): pravastatin 20mg (5) GERD (gastroesophageal reflux disease): Typically takes home PPI Admission and Anticipated Discharge Date Admission Date: March 27, 2020 Subjective Patient still with right flank pain probably 5 out of 10. She has had no hematuria she has not had frequent urination however developed some shortness of breath after IV fluid will be increased Review of Systems Review of Systems: Mild distress and fatigue no headache, blurry or double vision no speech or swallowing issues no chest pain, pressure or palpitations no shortness of breath, cough or wheezes Right-sided abdominal pain mild nausea no dysuria, hematuria or frequency no focal joint pain or swelling Stated back pain with CVA tenderness no radicular pain no bruising, bleeding or rashes no focal signs of weakness or numbness or altered sensation no complaints or anxiety or depression. Physical Exam Physical Exam: The patient appeared well nourished and normally developed. She is in mild to moderate distress Vital signs as documented. Head exam is normocephalic atraumatic no scleral icterus Neck is without JVD, thyromegaly, or carotid bruits. Lungs are clear to auscultation, no focal loss of breath sounds Cardiac exam, Rhythm is regular.. No murmurs, rubs or gallops. Abdominal exam reveals normal bowel sounds, soft nonright-sided tenderness CVA angle tenderness some tenderness to percussion Extremities are nonedematous and both pedal pulses are normal. Neurologic exam is alert and oriented, no focal loss of strength or sensation Skin is without bruises or rashes Psychologically is without concerns for anxiety or depression. Results & Data Results & Data ([facility]) Vital Signs (Past 12 Hours) Vital Signs Temp Pulse Resp BP Pulse Ox 03/28/20 07:50 92 03/28/20 07:37 98.4 F 90 18 124/76 96 PG Care Time/CCT Total # of Minutes Spent Total Time Spent with Patient: Total time spent is greater than 50% in coordination of care (as documented) at patient's floor/unit and/or counseling patient: Coding Level of Care Code 95744 Subseq Hosp Care Lvl 3 Diagnoses Nausea & vomiting R11.2 Vomiting type: unspecified Renal colic N23 Hypothyroid E03.9 HLD (hyperlipidemia) E78.5 GERD (gastroesophageal reflux disease) K21.9 (1) Nausea & vomiting Vomiting type: unspecified
--- NOTE | 2020-03-28 13:23 | Urology Consultation ---
Date of Consultation March 28, 2020 Assessment & Plan (1) Renal colic: [facility] On renal ultrasound continues to have mild hydro-with likely perinephric stranding. Patient does not feel like she is passed stone yet. KUB showing a small pelvic calcification likely the distal ureteral stone. Discussed options for conservative measure and maximum expulsion medical therapy and symptom controlled. Discussed ESWL. Discussed Ureteroscopy with extraction and/or laser lithotripsy. Risks and benefits were discussed. Stone free rates were also discussed as well as possibility of multiple procedures. Ureteral stents were discussed as well as post-operative issues and pain management. All questions were answered. We will continue with monitoring and supportive care with IV fluids. If patient continues to do well and is able to pass stone may not need intervention however if she has issues we will make her n.p.o. at midnight with plans to possibly place stent to remove stone tomorrow in the OR. Monitor for fevers and chills. Agree with plan to continue monitoring and supportive care. Patient can have diet at this point with plans for n.p.o. at midnight (2) Abdominal pain: History of Present Illness Attending Physician: Arvin Goldberg MD History of Present Illness New consultation for patient with stone, discomfort, obstruction, and ill feelings. Patient developed sudden onset of pain into flank going down and radiating into groin and back in waves comes and goes. Can be severe at times. Issues started on and patient went to an outlying facility where she was found to have a small 2 mm approximate size stone in the ureter. Since then patient has utilizing supportive care. She had her bowels backed up a bit. Patient also developed significant nausea with vomiting and has been undergoing supportive care monitoring in the hospital for these issues. She has been improving and finds that the pain medicine seems to be what gives the majority of her nausea. Discussed and reviewed patient's family history for any history of stone disease. Also, discussed patient's medical surgery history especially related to any history of urinary issues or stone disease. No significant family history of stone disease. Patient has never had stone prior Patient was admitted and is undergoing observation. Allergies Allergy/AdvReac Type Severity Reaction Status Date / Time morphine Allergy Severe HAD TO BE Verified 03/26/20 23:42 RESUSCITATED, VEINS WENT "WHITE". Penicillins Allergy Intermediate RASH-HIVES Verified 03/26/20 23:42 Home Medications Home Medications Medication Instructions Recorded Confirmed Type acetaminophen-codeine 1 tab PO Q4H PRN 03/26/20 03/26/20 History black cohosh 200 mg PO DAILY 03/26/20 03/26/20 History calcium carbonate-vitamin D3 1 cap PO DAILY 03/26/20 03/26/20 History [Calcium 600 + D(3)] cholecalciferol (vitamin D3) 25 mcg PO DAILY 03/26/20 03/26/20 History [Vitamin D3] ciprofloxacin HCl 500 mg PO Q12H 03/26/20 03/26/20 History levothyroxine 25 mcg PO DAILYBB 03/26/20 03/26/20 History multivitamin 2 tab PO DAILY 03/26/20 03/26/20 History omeprazole 40 mg PO DAILYBB 03/26/20 03/26/20 History ondansetron 4 mg TRANSLINGUAL Q6H PRN 03/26/20 03/26/20 History pravastatin 20 mg PO DAILY 03/26/20 03/26/20 History tamsulosin 0.4 mg PO DAILY 03/26/20 03/26/20 History Patient History Surgical History H/O knee surgery H/O: hysterectomy Social History Smoking Status: Never smoker Second Hand Exposure: No; Do You Dip or Chew Tobacco: No; Tobacco Cessation Education Requested by Patient: No Hx Alcohol Use: No Hx Substance Use: No Preferred Language: Slovak Communication Ability: Effective Supervisor Grounds Required: No Beliefs That Will Affect Care: None Current Living Situation: Spouse Other Information That Helps Us Care for You: No Feels Safe at Home: Yes Safety Concerns: Feels Safe At This Time Review of Systems Review of Systems: All systems reviewed & are unremarkable except as noted in HPI & below Physical Exam Physical Exam: General: Alert and oriented x 3 in no acute distress. Patient is well nourished and well kept. HEENT: Normocephalic Atraumatic. Inspection normal. Cranial Nerves 2-12 Grossly intact. Nares are clear. Neck is supple. Normal inspection of face. Normal inspection of neck. Neurologic: No deficits on inspection. Baseline for motor function and sensory. Psychologic: Normal affect. Respiratory: Nonlabored. No use of accessory muscles. No tachypnea or dyspnea. Cardiovascular: No tachycardia Skin: [place] and Dry. No rashes or visible lesions. Extremities: Moving without issues. No motor deficits on inspection Lymphatics: No edema Abdomen: Soft Non-distended. No acites. No rebound or guarding. Results & Data ([facility]) Vital Signs (Past 12 Hours) Vital Signs Temp Pulse Resp BP Pulse Ox 03/28/20 07:50 92 03/28/20 07:37 36.9 C 90 18 124/76 96 PG Care Time/CCT Total # of Minutes Spent Total Time Spent with Patient: Total time spent is greater than 50% in coordination of care (as documented) at patient's floor/unit and/or counseling patient: Coding Level of Care Code 88003 Inpt Consult Level 5 Diagnoses Renal colic N23 Abdominal pain R10.31 Abdominal location: right lower quadrant (1) Abdominal pain Abdominal location: right lower quadrant Qualified Code(s): R10.31 - Right lower quadrant pain
[2020-03-28] MEDS: ACETAMINOPHEN 325 MG TAB PO PRN (22:46)
[2020-03-29] MEDS: LEVOTHYROXINE SODIUM 25 MCG TABLET PO SCH (05:45)
--- NOTE | 2020-03-29 08:09 | Urology Progress Note ---
Date of Service March 29, 2020 Assessment & Plan (1) Abdominal pain: Patient with right-sided distal ureteral stone with obstruction and significant pain and nausea. Patient underwent maximal expulsion therapy with IV hydration and medications for symptom control. Patient has yet to resolve any of the considerable discomfort issues and problems coming in waves. Patient continues to have nausea. Otherwise is improving. No other major changes. Discussed options and concerns. Patient continues to have issues and does appear to continue to have the stone. Discussed option such as cystoscopy with right-sided stent placement. Patient will be consented and scheduled for an add-on case Risks and benefits discussed at length for procedure. These include bleeding, infection, injury to surrounding tissues or organs, and risks associated with anesthesia. Patient states understanding and agrees to proceed. Will sign consent and schedule. (2) Renal colic: Admission and Anticipated Discharge Date Admission Date: March 27, 2020 Subjective Patient admitted with stone and discomfort. Patient is afebrile. Has been undergoing maximum expulsion therapy with oral medications, IV medications, IV fluids, and oral intake. Is doing better without considerable increase in pain or major issues. Has not developed severe vomiting or other issues. Has not experienced fever or chills. Has been tolerating oral medications. Is tolerating fluids. Has noticed some frequency and urgency. Has not had severe pain in the back and flank. Does have occasional burning and irritation. No severe episodes or major changes. Patient does not believe the passed a stone. Has not passed a large amount of blood or debris that may be the stone. Review of Systems Review of Systems: All systems reviewed & are unremarkable except as noted in HPI & below Physical Exam Physical Exam: General: Alert in no acute distress. HEENT: Normocephalic Atraumatic. Inspection normal. Cranial Nerves 2-12 Grossly intact. Normal inspection of face. Normal inspection of neck. Psychologic: Normal affect. Respiratory: Nonlabored. No use of accessory muscles. No tachypnea or dyspnea. Cardiovascular: No tachycardia Skin: [place] and Dry. No rashes or visible lesions. Extremities/Lymphatics: No edema Abdomen: Soft Non-distended. No rebound or guarding. Results & Data ([facility]) Vital Signs (Past 12 Hours) Vital Signs Temp Pulse Resp BP Pulse Ox Pulse Ox 03/29/20 07:35 36.8 C 87 18 138/79 88 L 03/29/20 00:20 95 03/28/20 23:14 37.6 C H 92 H 16 134/72 93 PG Care Time/CCT Total # of Minutes Spent Total Time Spent with Patient: Total time spent is greater than 50% in coordination of care (as documented) at patient's floor/unit and/or counseling patient: Coding Level of Care Code 85150 Subseq Hosp Care Lvl 3 Diagnoses Abdominal pain R10.31 Abdominal location: right lower quadrant Renal colic N23 (1) Abdominal pain Abdominal location: right lower quadrant Qualified Code(s): R10.31 - Right lower quadrant pain
[2020-03-29] MEDS: ACETAMINOPHEN 325 MG TAB PO PRN (08:23)
[2020-03-29] MEDS: PRAVASTATIN SOD 20 MG TAB PO SCH (08:24)
[2020-03-29] MEDS: TAMSULOSIN HCL 0.4 MG CAP PO SCH (08:24)
--- NOTE | 2020-03-29 13:45 | Anesthesiology Consultation ---
Date of Service March 29, 2020 Assessment & Plan (1) Encounter for pre-operative examination: Chart Review Chart Review: Acceptable Risk for Surgery and Patient NOT seen in Pre Admission Testing Consults Requested none ASA ASA2 Proposed Anesthesia Anesthesia Type: MAC Risk / Benefits Reviewed With: PT / POA / Parent / Guardian, Accepts Plan and I nformed Consent Obtained History Surgery Operation Date: 03/29/20 13:40 Proposed Procedures p Cystoscopy, Right Stent Insertion - Jeovany English, Height/Weight Height: 5 ft 3 in Weight: 61 kg Allergies Allergy/AdvReac Type Severity Reaction Status Date / Time morphine Allergy Severe HAD TO BE Verified 03/26/20 23:42 RESUSCITATED, VEINS WENT "WHITE". Penicillins Allergy Intermediate RASH-HIVES Verified 03/26/20 23:42 Medications Home Medications Medication Instructions Recorded Confirmed Last Taken acetaminophen-codeine 1 tab PO Q4H PRN 03/26/20 03/26/20 03/26/20 12:00 black cohosh 200 mg PO DAILY 03/26/20 03/26/20 03/26/20 calcium carbonate-vitamin D3 1 cap PO DAILY 03/26/20 03/26/20 03/26/20 [Calcium 600 + D(3)] cholecalciferol (vitamin D3) 25 mcg PO DAILY 03/26/20 03/26/20 03/26/20 [Vitamin D3] ciprofloxacin HCl 500 mg PO Q12H 03/26/20 03/26/20 03/26/20 08:00 levothyroxine 25 mcg PO DAILYBB 03/26/20 03/26/20 03/26/20 multivitamin 2 tab PO DAILY 03/26/20 03/26/20 03/26/20 omeprazole 40 mg PO DAILYBB 03/26/20 03/26/20 03/26/20 ondansetron 4 mg TRANSLINGUAL Q6H PRN 03/26/20 03/26/20 03/26/20 pravastatin 20 mg PO DAILY 03/26/20 03/26/20 03/26/20 tamsulosin 0.4 mg PO DAILY 03/26/20 03/26/20 03/26/20 Active Medications Generic Name Dose Route Start Last Admin Trade Name Freq PRN Reason Stop Dose Admin Acetaminophen 650 mg 03/27/20 03:33 03/29/20 08:23 Acetaminophen 325 Mg Tab PO 04/26/20 03:32 650 mg Q4H PRN Administration Pain or Fever Levothyroxine Sodium 25 mcg 03/27/20 06:30 03/29/20 05:45 Levothyroxine Sodium 25 Mcg Tablet PO 04/26/20 06:29 25 mcg DAILYBB YUMIKO Administration Ondansetron HCl 4 mg 03/27/20 03:33 03/28/20 17:14 Ondansetron Inj 2 Mg/Ml 2 Ml Vial IV 04/26/20 03:32 4 mg Q6H PRN Administration Nausea Pravastatin Sodium 20 mg 03/27/20 09:00 03/29/20 08:24 Pravastatin Sod 20 Mg Tab PO 04/26/20 08:59 20 mg DAILY YUMIKO Administration Tamsulosin HCl 0.4 mg 03/27/20 09:00 03/29/20 08:24 Tamsulosin Hcl 0.4 Mg Cap PO 04/26/20 08:59 0.4 mg DAILY YUMIKO Administration NPO Date Last Intake of Fluids: 03/28/20 Time Last Intake of Fluids: 15:30 Date Last Intake of Solids: 03/28/20 Time Last Intake of Solids: 15:30 Exercise / Class Metabolic Activity II 4-5 Yardwork/Stairs/Walk up hill Past Surgical History Surgical History H/O knee surgery H/O: hysterectomy Past Anesthesia History No Hx of Anesthesia Complications and No Family Hx of Anesthesia Complications History of PONV No Hx of PONV and No Hx of Motion Sickness Social History Smoking Status: Never smoker Do You Dip or Chew Tobacco: No Hx Alcohol Use: No Hx Substance Use: No Physical Exam Vital Signs Last Vital Signs Temp 37 C 03/29/20 13:13 Pulse 87 03/29/20 13:13 Resp 20 03/29/20 13:13 BP 141/86 H 03/29/20 13:13 Pulse Ox 99 03/29/20 13:13 ENMT Mouth: no dentition abnormality Thyromental Distance: > or= 3.5 Finger Breadths Mallampati Class: II Neck normal visual inspection Respiratory normal respiratory effort Auscultation: lungs clear to auscultation bilaterally Cardiovascular Rate/Rhythm: regular rate and regular rhythm Psychiatric Orientation: alert Testing Laboratory Results 03/28/20 05:37 03/28/20 05:37 Urine Color Yellow 03/27/20 04:00 Urine Appearance Clear (Clear) 03/27/20 04:00 Urine pH 5.0 (4.5-7.5) 03/27/20 04:00 Ur Specific [place] 1.019 (1.000-1.030) 03/27/20 04:00 Urine Protein Negative (Negative) 03/27/20 04:00 Urine Glucose (UA) Negative (Negative) 03/27/20 04:00 Urine Ketones 1+ (Negative) H 03/27/20 04:00 Urine Nitrite Negative (Negative) 03/27/20 04:00 Ur Leukocyte Esterase Negative (Negative) 03/27/20 04:00 Urine WBC (Auto) 0 /hpf (0-5) 03/27/20 04:00 Urine RBC (Auto) 0-4 /hpf (0-4) 03/27/20 04:00 U Hyaline Cast (Auto) 1-5 /lpf (0-5) 03/27/20 04:00 U Epithel Cells (Auto) 0-5 /lpf (0-5) 03/27/20 04:00 Urine Bacteria (Auto) Negative (Negative) 03/27/20 04:00
[2020-03-29] MEDS ORDERED: fentaNYL citrate 100 MCG/2 ML VIAL IV PRN (13:46)
[2020-03-29] MEDS ORDERED: ePHEDrine sulfate 50 MG/ML AMP IV PRN (13:46)
[2020-03-29] MEDS ORDERED: ATROPINE SULFATE 0.1 MG/ML 10ML SYR IV PRN (13:46)
[2020-03-29] MEDS ORDERED: ONDANSETRON INJ 2 MG/ML 2 ML VIAL IV PRN (13:46)
[2020-03-29] MEDS ORDERED: fentaNYL citrate 100 MCG/2 ML VIAL ONE (14:24)
[2020-03-29] MEDS ORDERED: MIDAZOLAM HCL 1 MG/ML 2ML VIAL ONE (14:24)
[2020-03-29] MEDS ORDERED: CEFAZOLIN 250 MG/ML 1 GM VIAL ONE (15:01)
[2020-03-29] MEDS ORDERED: ONDANSETRON INJ 2 MG/ML 2 ML VIAL ONE (15:01)
[2020-03-29] MEDS ORDERED: LIDOCAINE HCL 2% 2 ML VIAL/AMP(20MG/ML) INFIL ONE (15:01)
[2020-03-29] MEDS ORDERED: PROPOFOL IV EMULSION 10 MG/ML 20 ML VIAL IV ONE (15:01)
[2020-03-29] MEDS ORDERED: CEFAZOLIN 1000MG 1,000 MG/7.5 ML SYR IV ONE (15:10)
[2020-03-29] MEDS ORDERED: IOTHALAMATE MEGLUMINE II 17.2% 250 ML VIAL INSTIL ONE (15:11)
--- NOTE | 2020-03-29 15:16 | Operative Report ---
PG Post Operative Report Pre & Post Diagnosis Operation Date: 03/29/20 13:40 Pre-Op Diagnosis: Right ureteral stone Post-Op Diagnosis: Right ureteral stone I identified the patient and participated in the time-out.: Yes Procedure Cystoscopy with right ureteroscopy, stone basket extraction, and stent placement with retrograde pyelogram. Operation Date: 03/29/20 13:40 <No data on this case meets the specified criteria> Surgeon Jeovany English, II, DO Receiving Clerk None Estimated Blood Loss 1 Findings Consistent with Post-Op Diagnosis Stone removed. Severely impacted at distal ureter Specimens Stone Distal right ureter Drains 6 Fr Multilength without tether Anesthesia Type General Complications none Disposition Disposition: Recovery Room Indications Patient with bothersome stones. Risks and benefits discussed at length. Description of Procedure Patient was consented and brought back to the operating room. Patient was placed under anesthesia in the supine position and moved to the dorsal lithotomy position. Patient was prepped and draped in the regular sterile fashion. A time out was completed. A 30degree Cystoscope was placed into the bladder and the entire bladder was examined. The UO's were identified. The UO was cannulized with a catheter and a retrograde pyelogram was completed. A wire was then placed. The wire had to be manipulated multiple times to advance. The stone appeared severely impacted. The Rigid ureteroscope was taken into the ureter. The stone was identified. The ureter was dilated and the stone grasped and removed and sent for analysis. The scope was taken into the ureter and advanced to the proximal ureter without other issues The entire area was once again examined. No residual large fragments or areas of concern were noted. The scope was slowly removed with the wire left in place. Contrast was placed through the scope for a pyelogram to assist in stent jeevan cement. The entire ureter was examined as the scope was slowly removed. No obstructions or other areas of concern were noted. The area of impaction was significantly irritated. With the wire in place, a 6 Fr Double J stent was placed. It was confirmed with fluoroscopy. With the stent in place, the bladder was emptied. The scope was removed. The patient was cleaned, aroused from anesthesia, and transferred to the pacu in stable condition having tolerated the procedure well with no complications. I was present and participated in all aspects of the procedure. The patient will be monitored in the PACU until transferred. I attest to the content of the Intraoperative Record and any orders documented therein. Any exceptions are noted below.
--- NOTE | 2020-03-29 15:29 | Fluoroscopy Report ---
INTRAOPERATIVE RADIOGRAPHS CLINICAL HISTORY: Right-sided retrograde pyelogram and ureteral stent placement. Fluoroscopy time: 22 seconds. FINDINGS: 5 spot fluoroscopic images of the abdomen are correlated with KUB dated 03/28/2020. The init ial image shows the catheter projecting over the distal right ureter. The right ureter is normal in c aliber. There is mild right hydronephrosis. The final 2 images show the proximal and distal ends of t he right ureteral stent in appropriate position. IMPRESSION: Intraoperative images from a right ureteral stent placement procedure as above. Electronically signed by: Madi Dodson M.D. 03/29/2020 3:27 PM
--- NOTE | 2020-03-29 16:07 | Hospitalist Progress Note ---
Date of Service March 29, 2020 Assessment & Plan (1) Ureteral stone: 2mm stone on the right unable to pass on her own with IV fluids and pain control to OR on 03/29 for cystoscopy and stone extraction, tolerated well plan to d/c tomorrow document controller (2) Renal colic: Flomax 0.4mg daily, pain control pain much better after stone extraction on 03/29 (3) Nausea & vomiting: - Recently diagnosed with right sided kidney stone at [place] ED 03/26 -persistent pain, u/s not confirming, kub shows possible small stone on the right - She has been unable to continue outpatient management as started to have intractable vomiting. - She notes no prior hx of kidney stones prior to this episode. Her brothers had kidney stones and her mother had gallstones vomiting resolved today after treatment of stone (4) Hypothyroid: home synthroid 25mcg daily (5) HLD (hyperlipidemia): pravastatin 20mg (6) GERD (gastroesophageal reflux disease): PPI Admission and Anticipated Discharge Date Admission Date: March 29, 2020 Subjective patient seen this morning prior to going to OR, still in a lot of pain after cystoscopy with stone retrieval she was feeling better, a little sleepy from anesthesia tolerated procedure well no labs today discussed with Dr English, will plan to d/c in the morning Review of Systems Review of Systems: All systems reviewed & are unremarkable except as noted in Subjective Constitutional: no fever, no chills, no sweats, no fatigue and no weakness Gastrointestinal: no abdominal pain, no nausea, no vomiting, no constipation and no diarrhea/loose stools Genitourinary: + flank pain (right sided) Physical Exam Constitutional: WD/WN, vitals as above Eyes: PERRL, conjunctivae normal, anicteric sclerae ENMT: external ear and nose normal, oropharynx normal Neck: trachea midline, no thyromegaly Respiratory: normal respiratory effort, lungs clear to auscultation Cardiovascular: RRR, no murmur, no edema Gastrointestinal (Abdomen): normal bowel sounds, soft, nontender, no hepatosplenomegaly Musculoskeletal: no cyanosis or clubbing, extremities motor strength 5/5 Skin: no rashes, warm and dry Neurologic: patellar DTR's 2+ bilat, sensation intact and PERRL, EOMI, accommodation nl, no face palsy, no dysarthria Psychiatric: A+Ox3, euthymic affect Lymphatic: no cervical or axillary lymphadenopathy Results & Data Results & Data ([facility]) Vital Signs (Past 12 Hours) Vital Signs Temp Pulse Pulse Resp BP Pulse Ox Pulse Ox 03/29/20 15:35 36.7 C 84 20 132/77 95 03/29/20 15:25 36.8 C 99 H 26 H 133/80 96 03/29/20 13:13 37 C 87 20 141/86 H 99 03/29/20 08:08 94 94 03/29/20 07:35 36.8 C 87 18 138/79 88 L Medications Administered Current Inpatient Medications Acetaminophen (Acetaminophen 325 Mg Tab) 650 mg PO Q4H PRN PRN Reason: Pain or Fever Stop: 04/26/20 03:32 Last Admin: 03/29/20 08:23 Dose: 650 mg Documented by: Atropine Sulfate (Atropine Sulfate 0.1 Mg/Ml 10ml Syr) 0.5 mg IV Q1M PRN PRN Reason: PACU Use-HR<40 &/or Bradycardi Stop: 03/29/20 21:46 Ephedrine Sulfate (Ephedrine Sulfate 50 Mg/Ml Amp) 5 mg IV Q5M PRN PRN Reason: PACU Use Only-SBP<90 mmHg Stop: 03/29/20 21:46 Fentanyl Citrate (Fentanyl Citrate 100 Mcg/2 Ml Vial) 50 mcg IV Q5M PRN PRN Reason: PACU Use Only-Pain Stop: 03/29/20 21:46 Levothyroxine Sodium (Levothyroxine Sodium 25 Mcg Tablet) [facility] Stop: 04/26/20 06:29 Last Admin: 03/29/20 05:45 Dose: 25 mcg Documented by: Ondansetron HCl (Ondansetron Inj 2 Mg/Ml 2 Ml Vial) 4 mg IV Q6H PRN PRN Reason: Nausea Stop: 04/26/20 03:32 Last Admin: 03/28/20 17:14 Dose: 4 mg Documented by: Ondansetron HCl (Ondansetron Inj 2 Mg/Ml 2 Ml Vial) 4 mg IV ONCE PRN PRN Reason: PACU Use Only-Nausea/Vomiting Stop: 03/29/20 21:47 Pravastatin Sodium (Pravastatin Sod 20 Mg Tab) 20 mg PO DAILY [facility] Stop: 04/26/20 08:59 Last Admin: 03/29/20 08:24 Dose: 20 mg Documented by: Tamsulosin HCl (Tamsulosin Hcl 0.4 Mg Cap) 0.4 mg PO DAILY YUMIKO Stop: 04/26/20 08:59 Last Admin: 03/29/20 08:24 Dose: 0.4 mg Documented by: PG Care Time/CCT Total # of Minutes Spent Total Time Spent with Patient: Total time spent is greater than 50% in coordination of care (as documented) at patient's floor/unit and/or counseling patient: Coding Level of Care Code 57541 Subseq Hosp Care Lvl 2 Diagnoses Ureteral stone N20.1 Renal colic N23 Nausea & vomiting R11.2 Vomiting type: unspecified Hypothyroid E03.9 HLD (hyperlipidemia) E78.5 GERD (gastroesophageal reflux disease) K21.9 (1) Nausea & vomiting Vomiting type: unspecified
--- NOTE | 2020-03-29 16:21 | Anesthesiology Progress Note ---
Date of Service March 29, 2020 Anesthesia Post Procedure Vital Signs Vital Signs: Temp Pulse Pulse Pulse Resp BP Pulse Ox 03/29/20 15:35 36.7 C 84 20 132/77 95 03/29/20 15:25 36.8 C 99 H 26 H 133/80 96 03/29/20 13:13 37 C 87 20 141/86 H 99 03/29/20 08:08 94 03/29/20 07:35 36.8 C 87 18 138/79 88 L 03/29/20 00:20 03/28/20 23:14 37.6 C H 92 H 16 134/72 93 03/28/20 16:23 36.7 C 89 16 125/78 97 Pulse Ox 03/29/20 15:35 03/29/20 15:25 03/29/20 13:13 03/29/20 08:08 94 03/29/20 07:35 03/29/20 00:20 95 03/28/20 23:14 03/28/20 16:23 Pain Intensity Right Flank: Pain Intensity: 0 Transfer of Care Handoff Completed per policy Notes Mental Status: alert / awake / arousable and participated in evaluation Patient Amnestic to Procedure: Yes Nausea / Vomiting: adequately controlled Pain: adequately controlled Airway Patency, RR, SpO2: stable & adequate BP & HR: stable & adequate Hydration State: stable & adequate Anesthetic Complications: no major complications apparent
[2020-03-30 06:06] LABS: Hematocrit (blood only) 30.2 % (37-47); Mean Corpuscular Hgb Conc 33.1 g/dL (32-36); Mean Corpuscular Volume 84.6 fL (80-100); Mean Platelet Volume 8.6 fL (7.4-10.4); Platelet Count 256 K/uL (130-400); RDW Coefficient of Variation 13.3 % (11.5-14.5); RDW Standard Deviation 40.7 fL (36.4-46.3); Red Blood Count 3.57 M/uL (4.2-5.4)
[2020-03-30] MEDS: LEVOTHYROXINE SODIUM 25 MCG TABLET PO SCH (06:11)
[2020-03-30 06:40] LABS: BUN Creatinine Ratio 17.2 (10-20); Calcium 8.3 mg/dl (8.5-10.1); Creatinine Clr Calc Pharmacy 91.2 ml/min; Est GFR (African American) 121.3; Est GFR (Non-African American) 104.6; Potassium 3.5 mmol/L (3.5-5.1)
--- NOTE | 2020-03-30 08:00 | Urology Progress Note ---
Date of Service March 30, 2020 Assessment & Plan (1) Ureteral stone: 55 year-old female patient admitted with intractable pain and nausea secondary to 2 mm distal right ureteral calculus. -POD #1 cystoscopy with right ureteroscopy, stone basket extraction, and right stent placement with retrograde pyelogram. -Clinically progressing as expected. -Afebrile, creatinine improved. -Recommend home with Flomax and pain control. May use PRN Oxybutynin for bladder spasms. -Okay from perspective for discharge. -Will arrange outpatient follow-up in office for stent removal. -Patient in agreement with plan. Thank you for allowing us to participate in the acute care of Mrs. Ugalde. Please reconsult us with additional questions, concerns or changes in patient status. Subjective POD #1 cystoscopy with right ureteroscopy, stone basket extraction, and right stent placement with retrograde pyelogram. She is feeling well since her procedure. Pain has resolved. Denies current flank or abdominal pain. Denies nausea or vomiting. Denies fevers or chills. Does have hematuria as expected with intermittent urgency/frequency. Denies dysuria. She is eager to go home today. Chart review: Afebrile Wbc 8.00 Hgb 10.0 Creatinine 0.59 Denies additional urologic concerns today. Review of Systems Constitutional: no fever and no chills Gastrointestinal: no nausea and no vomiting Genitourinary: as per Subjective / HPI Neurologic: no dizziness and no syncope Physical Exam Constitutional: well developed and well nourished; no acute distress and not ill appearing Respiratory: normal respiratory effort and able to speak in complete sentences; no respiratory distress and no audible wheezes Gastrointestinal (Abdomen): Inspection/Auscultation: abdomen normal to inspection; abdomen not distended Percussion/Palpation: abdomen soft; abdomen nontender and no guarding Skin: No visible rashes, lesions or wounds. Psychiatric: Orientation: alert, oriented x 3 and cooperative Affect: euth ymic affect Genitourinary: no CVA tenderness Results & Data ([facility]) Vital Signs (Past 12 Hours) Vital Signs Temp Pulse Resp BP Pulse Ox Pulse Ox 03/30/20 07:15 94 03/30/20 03:00 36.6 C 90 16 124/72 96 03/30/20 00:35 96 03/29/20 23:39 36.9 C 90 18 119/74 94 PG Care Time/CCT Total # of Minutes Spent Total Time Spent with Patient: Total time spent is greater than 50% in coordination of care (as documented) at patient's floor/unit and/or counseling patient: Coding Level of Care Code 63981 Subseq Hosp Care Lvl 2 Diagnoses Ureteral stone N20.1
[2020-03-30] MEDS: PRAVASTATIN SOD 20 MG TAB PO SCH (08:56)
[2020-03-30] MEDS: TAMSULOSIN HCL 0.4 MG CAP PO SCH (08:56)
--- NOTE | 2020-03-30 22:38 | Discharge Summary ---
Date of Service March 30, 2020 Admission HPI Per Admitting Provider Tete Ugalde is a 55 y/o female who presented to [facility] ED today for CC of Vomiting. She notes she had sudden onset of right lower back pain yesterday around 1pm that radiated into right groin. She notes pain was severe and she went to [place] ED. She notes she was diagnosed with a kidney stone in the ED. She was given Rx for Flomax, Zofran ODT, and Ciprofloxacin 500mg. She notes she was given an IV abx in [place] ED as well but cannot recall the name. She notes she started to have nausea and vomiting after she returned home from the ED. She notes that episodes were too numerous to count. She notes that vomiting was worsened with any PO intake. She notes she did not try Zofran ODT which she had at home. She noted decreased urine output today as well. She was concerned about dehydration and came here to [facility] ED. She notes she took Cipro this morning but had episode of vomiting right after taking pill. She states that her PCP reviewed UA results from ED visit and told patient that patient didn't appear to have a UTI. Patient states that her PCP made no recommendations to continue to discontinue antibioics. She denies any fever or chills. She notes no prior hx of kidney stones prior to this episode. She notes current nausea/vomiting is controlled and pain is controlled from ED treatment. In the ED she received, prochlorperazine, dilaudid 1mg IV, NSS 2L Bolus total, Zofran 4mg IV x 2 doses, Tylenol 1gm IV, Toradol 10mg IV, morphine 2mg IV, Mag 1gm IV, Dilaudid 0.5mg IV. Principal Diagnosis Ureteral stone Discharge Exam Constitutional WD/WN, vitals as above Eyes PERRL, conjunctivae normal, anicteric sclerae ENMT external ear and nose normal, oropharynx normal Neck trachea midline, no thyromegaly Respiratory normal respiratory effort, lungs clear to auscultation Cardiovascular RRR, no murmur, no edema Gastrointestinal (Abdomen) normal bowel sounds, soft, nontender, no hepatosplenomegaly Musculoskeletal no cyanosis or clubbing, extremities motor strength 5/5 Skin no rashes, warm and dry Neurologic patellar DTR's 2+ bilat, sensation intact and PERRL, EOMI, accommodation nl, no face palsy, no dysarthria Psychiatric A+Ox3, euthymic affect Lymphatic no cervical or axillary lymphadenopathy Discharge Data Allergies Allergy/AdvReac Type Severity Reaction Status Date / Time morphine Allergy Severe HAD TO BE Verified 03/26/20 23:42 RESUSCITATED, VEINS WENT "WHITE". Penicillins Allergy Intermediate RASH-HIVES Verified 03/26/20 23:42 Consultations 03/27/20 01:45 ED Decision to Admit Stat 03/27/20 03:33 Consult Case Management - Discharge Planning Routine 03/28/20 12:40 Consult Urology Routine Procedures Performed Operation Date: 03/29/20 13:40 Actual Procedures p Cystoscopy, Right Stent Insertion(Right) - Jeovany English, DO Ordered Studies 03/27/20 13:21 US renal/blad retro comp Routine 03/29/20 12:30 FL retrograde includes kub Routine Hospital Course (1) Ureteral stone: 2mm stone on the right unable to pass on her own with IV fluids and pain control to OR on 03/29 for cystoscopy and stone extraction, tolerated well discharge to home, follow up with PCP for stone analysis can follow up with urology PRN (2) Renal colic: Flomax 0.4mg daily, pain control pain much better after stone extraction on 03/29 (3) Nausea & vomiting: - Recently diagnosed with right sided kidney stone at [place] ED 03/26 -persistent pain, u/s not confirming, kub shows possible small stone on the right - She has been unable to continue outpatient management as started to have intractable vomiting. - She notes no prior hx of kidney stones prior to this episode. Her brothers had kidney stones and her mother had gallstones vomiting resolved after treatment of stone (4) Hypothyroid: home synthroid 25mcg daily (5) HLD (hyperlipidemia): pravastatin 20mg (6) GERD (gastroesophageal reflux disease): PPI Total Time Total Time Spent Total Time Spent (In Minutes): 20 Total Time Includes: Examination of the Patient, Discharge Planning, Medication Reconciliation and Communication With Other Providers (urology) Discharge Plan Discharge Items Patient Disposition: Home - Self-Care Reason For Visit: INTRACTABLE VOMITING Discharge Diagnosis: Right ureteral stone Vomiting due to stone, pain Condition on Discharge: Good Activity: Resume your previous activity Non-emergency contact: Primary Care Provider and Urologist Call non-emergency contact if: you have any medication questions, your symptoms worsen and you have a fever Follow-up/Referrals: Jessie Montgomery [Primary Care Provider] - 04/06/20 9:00 am (one week) Diet: Regular Addtl Attending Provider Instructions: Medications: stop Ciprofloxacin, continue other prior medications Stay well hydrated, get rest For breathing, make sure you stay upright most of the day, use the incentive spirometer to take several deep breaths an hour and hold them as long as you can this will help open up the bottom portions of your lungs that were under- ventilated during procedure follow up with your PCP in one week, should have results of stone analysis Pending Studies at Discharge: Yes Studies:: stone analysis Stand-Alone Forms: [employer]!, Opioid Pain Management, Work/School Release (Inpt), Smoking Cessation Medications and DC Order Prescriptions: Continued acetaminophen-codeine 300-30 mg tablet 1 tab PO Q4H PRN (Reason: Pain) RF: 0 omeprazole 40 mg capsule,delayed release(DR/EC) 40 mg PO DAILYBB RF: 0 levothyroxine 25 mcg tablet 25 mcg PO DAILYBB RF: 0 tamsulosin 0.4 mg capsule 0.4 mg PO DAILY RF: 0 pravastatin 20 mg tablet 20 mg PO DAILY RF: 0 ondansetron 4 mg tablet,disintegrating 4 mg translingual Q6H PRN (Reason: Nausea) RF: 0 cholecalciferol (vitamin D3) [Vitamin D3] 25 mcg (1,000 unit) Capsule 25 mcg PO DAILY RF: 0 black cohosh 200 mg Capsule 200 mg PO DAILY RF: 0 multivitamin Tablet,Chewable 2 tab PO DAILY RF: 0 Calcium 600 + D(3) 600 mg calcium- 200 unit Capsule 1 cap PO DAILY RF: 0 Discontinued ciprofloxacin HCl 500 mg tablet 500 mg PO Q12H RF: 0 Discharge Orders: Discharge Order (Routine); Ordered 03/30/20 Ordered By: Floyd Shukla/Other Patient Handouts: Identifying Kidney Stones, Preventing Kidney Stones, Cystoscopy Admission Data Admit Date/Time: 03/29/20 10:27 Attending Provider: Floyd Sheridan Admit Provider: Yg Robles Primary Care Provider: Jessie Montgomery Other Providers: Aide Welch ; Jeovany English Other Interventions: Discharge Summary Assessment (RN) Last Done: 03/30/20 09:28 Coding Level of Care Code D/C Day Management <30 mins Diagnoses Ureteral stone N20.1 Renal colic N23 Nausea & vomiting R11.2 Vomiting type: unspecified Hypothyroid E03.9 HLD (hyperlipidemia) E78.5 GERD (gastroesophageal reflux disease) K21.9
[2020-04-04 03:45] LABS: Component 2 DNR; Source URETER STONE
== END 2020-03-30 11:22 | disposition home or self-care (01) | DRG 661 ==
LOC: ED 22:03 → 3E 22:03 → SUATTDRO 03-27 02:54 → 3E 03-27 03:10